=== PATIENT | female | born 1980 | race Caucasian/White ===

== ENCOUNTER → 2016-09-09 | Outpatient (CLI) | payer SELFPAY ==
[~2016-09-09] MED LIST: AMBIEN5 MG PO; DESYREL50 MG PO; LEXAPRO10 MG PO; MINIPRESS1 MG PO; NORVASC10 MG PO; OGESTREL TABLE1 EACH PO; PAXIL20 MG PO; PERCOCET 5-3251 EACH PO; RISPERDAL0.5 MG PO; ZOLOFT25 M1
== END | disposition disaster alternative care site (69) ==
LOC: GRAD 12:00
DX: R06.02 Shortness of breath (principal); R06.2 Wheezing; R05 Cough; R91.8 Other nonspecific abnormal finding of lung field

== ENCOUNTER 2016-09-10 18:31 | Emergency (ER) | payer SELFPAY ==
--- NOTE | ~2016-09-10 | ER ---
PATIENT'S NAME: [facility] AGE: 36 Y [address] ROOM: [place] [address] LOCATION: [facility] ADMIT DATE: 09/10/2016 ER/Outpatient Report DISCHARGE DATE: 09/10/2016 FAMILY PHYSICIAN: Austin Cordoba MD ATTENDING PHYSICIAN: Nehemiah Mays Admission date and time documented on the medical record. I saw the patient at 1845 hours. CHIEF COMPLAINT: Shortness of breath and productive cough. HISTORY OF PRESENT ILLNESS: The patient is a 36-year-old female who has had a 3 to 4 days history of shortness of breath, productive cough of green phlegm, chest discomfort especially with coughing. No fever, chills or sweats. No fall or trauma. No lightheadedness, dizziness, syncope, or near syncope. No headache, eyes, ears, nose, throat, neck, or spine pain. No abdominal pain, nausea, vomiting, diarrhea. No joint or muscle swelling, redness, or pain. No skin eruptions or rash. Does have bipolar disorder with manic depression, posttraumatic stress disorder, suicidal ideations. No endocrine problems or neuro changes. HOME MEDICATIONS: See attached medication list. ALLERGIES: MORPHINE SULFATE AND LATEX. SOCIAL HISTORY: The patient smokes a half pack of cigarettes per day. Nondrinker. SIGNIFICANT PAST MEDICAL HISTORY: Manic depressive bipolar disorder, posttraumatic stress disorder, suicidal ideation, asthma, hypertension, tobacco abuse, scoliosis, anemia. OPERATIONS: Left ankle surgery, tonsillectomy, x2, D and C x2, tubal surgery. REVIEW OF SYSTEMS: All systems reviewed by me are negative with the exception of those discussed in the history of present illness. PHYSICAL EXAMINATION: VITAL SIGNS: Temperature 98.4 and tympanic, pulse 116 and regular, PATIENT'S NAME: MIRANDA WALKER [facility] AGE: 36 Y [address] ROOM: [place] [address] LOCATION: [facility] ADMIT DATE: 09/10/2016 ER/Outpatient Report DISCHARGE DATE: 09/10/2016 FAMILY PHYSICIAN: Austin Cordoba MD ATTENDING PHYSICIAN: Nehemiah Mays respirations 24, blood pressure 169/90, O2 saturation on room air is 95%. HEENT: Head: Normocephalic. Eyes: Clear. Ears: Clear TMs bilaterally. Nose and Throat: Clear. Mucous membranes moist. NECK: No nuchal rigidity. No thyromegaly or cervical adenopathy. No tenderness. SPINE: Negative. LUNGS: Decreased breath sounds diffusely. Expiratory wheezing. Scattered rhonchi. Coarse congested cough. HEART: Regular. Tachy. Pulses palpable. The patient is tachypneic. ABDOMEN: Soft, nondistended, nontender. Good bowel tones. No organomegaly or abnormal mass palpable. EXTREMITIES: Intact. Neurovascularly intact. SKIN: Clear. IMAGING DATA: Chest x-ray showed no acute infiltrate or changes. We will review x-ray with the radiologist. LABORATORY DATA: White count 6100, 60 segs, 29 lymphs, 11 monos, hemoglobin 11.8, hematocrit 38.7, platelet count 328,000. CMS was normal except for low calcium of 8.4, low anion gap of 8.9, CRP was 0.49. EMERGENCY DEPARTMENT COURSE: Did give the patient DuoNeb and albuterol respiratory nebulizer treatments. We will dismiss. IMPRESSION: 1. Chronic obstructive pulmonary disease exacerbation with asthmatic bronchitis. 2. Bipolar disorder with manic depressive type. 3. Posttraumatic stress disorder. 4. Hypertension. 5. Tobacco abuse. PLAN: The patient discharged home. Observation. Activity as tolerated. Fluids and diet as tolerated. Continue present home medications and care. Prednisone 20 mg b.i.d. #14. Z-Jason take as directed. Albuterol oral inhaler with AeroChamber 2 puffs 30 seconds apart 4 times a day and p.r.n. Follow up with personal physician in 5 to 7 days or sooner if needed. Discussion ensued with the patient concerning my findings and recommendations, she understands. PATIENT'S NAME: MIRANDA WALKER [facility] AGE: 36 Y [address] ROOM: [place] [address] LOCATION: [facility] ADMIT DATE: 09/10/2016 ER/Outpatient Report DISCHARGE DATE: 09/10/2016 FAMILY PHYSICIAN: Austin Cordoba MD ATTENDING PHYSICIAN: Nehemiah Mays MD BASIA MARSH/modl /[id number] d: 09/11/16 0134 t: 09/11/16 1809, OUTPATIENT REPORT
[2016-09-10 19:36] LABS: HEMATOCRIT 38.7 % (33.0-46.0); HEMOGLOBIN 11.8 g/dL (11.0-15.0); MCH 24.8 pg (27.0-34.0); MCHC 30.5 gm/dL (32.0-36.5); MCV 81.3 fl (83.0-98.0); MPV 10.1 fl (9.4-12.4); PLATELET COUNT 328 K/uL (150-450); RBC 4.76 M/uL (3.50-5.50); RDW-CV 16.5 % (11.9-14.6); WBC 6.1 K/uL (4.0-11.0)
[2016-09-10 20:11] LABS: ALBUMIN 3.4 gm/dL (3.5-5.0); ALK PHOS 90 IU/L (33-138); ALT 17 IU/L (12-78); ANION GAP 8.9 (10.0-19.0); AST 12 IU/L (10-40); BLOOD UREA NITROGEN 13 mg/dL (6-24); CALCIUM 8.4 mg/dL (8.5-10.5); CHLORIDE 109 mMol/L (96-110); CO2 25 mMol/L (22-32); CREATININE 0.7 mg/dL (0.5-1.1); ESTIMATED GFR (MDRD EQUATION) > 60; POTASSIUM 3.9 mMol/L (3.7-5.1); SODIUM 139 mMol/L (135-145); TOTAL BILIRUBIN 0.3 mg/dL (0.0-1.5); TOTAL PROTEIN 7.2 g/dL (6.0-8.4)
[2016-09-10 20:26] LABS: ABSOLUTE NEUTROPHIL CT (ANC) 3.7 K/uL (1.8-7.8); LYMPHOCYTE # 1.8 K/uL (0.8-4.0); LYMPHOCYTE % 29 %; MONOCYTE # 0.7 K/uL (0.0-1.0); SEGMENTED NEUTROPHIL # 3.7 K/uL (1.8-7.8); SEGMENTED NEUTROPHIL % 60 %
== END 2016-09-10 21:33 | disposition disaster alternative care site (69) ==
LOC: GMED 18:31
PROVIDERS: Emergency Medicine
DX: J44.1 Chronic obstructive pulmonary disease with (acute) exacerbation (principal); F31.9 Bipolar disorder, unspecified; F43.10 Post-traumatic stress disorder, unspecified; I10 Essential (primary) hypertension; F17.210 Nicotine dependence, cigarettes, uncomplicated; Z91.040 Latex allergy status; Z88.5 Allergy status to narcotic agent; Z90.89 Acquired absence of other organs; Z98.890 Other specified postprocedural states; Z79.899 Other long term (current) drug therapy
CPT/HCPCS: J0696; J2930; J7030

== ENCOUNTER → 2016-09-12 | Outpatient (CLI) | payer SELFPAY | END | disposition disaster alternative care site (69) | LOC: GRAD 08:00 | DX: R91.8 Other nonspecific abnormal finding of lung field (principal) | CPT/HCPCS: Q9967 ==